=== PATIENT | female | born 1955 | race Caucasian/White ===

== ENCOUNTER 2018-09-22 10:03 | Emergency (ER) | payer OTHER, SELFPAY ==
[2018-09-22 10:03] VITALS: BP 115/66; PULSE 98; RESP 18; TEMP 36.6; O2SAT 99; BMI 28.3
--- NOTE | 2018-09-22 10:19 | CT_ITS ---
STUDY: CT ABDOMEN AND PELVIS WITH CONTRAST REASON FOR EXAM: Female, 63 years old. Abdominal pain with nausea RADIATION DOSAGE (If Supplied By Facility): CTDIvol = ( 13.12 ) mGy, DLP = ( 924.47 ) mGycm TECHNIQUE: Transaxial images were obtained from the dome of the diaphragm to the symphysis pubis without oral contrast. 100ml IV/Oral Isovue 300 was administered. Sagittal and coronal images were reconstructed. Individualized dose optimization techniques were used for this CT. COMPARISON: 04/21/2012 FINDINGS: Small left pleural effusion and compressive atelectasis in the left lung base. The visualized portions of the heart are within normal limits. Normal liver. Normal gallbladder and extrahepatic biliary system. Normal spleen. Normal pancreas. Normal bilateral adrenal glands. Normal right kidney. Interval development of perinephric stranding and edema around the left kidney extending into the left paracolic gutter. A large complex cystic lesion of the inferior left kidney has increased in size since the prior study, currently measuring 11 x 11 cm. Heterogeneous eccentric intermediate density likely represents blood product/sequela of hemorrhage. No active extravasation is identified, however. Normal visualized stomach. Normal small intestine. Normal colon. The appendix is visualized and appears normal. Normal abdominal aorta. Normal inferior vena cava. Normal retroperitoneum. Nondistended urinary bladder. Uterus is atrophic with smaller fibroid seen on the prior study. Mild degree of free fluid in the dependent portion of pelvis. Normal abdominal wall. Normal osseous structures. CT/Abdomen/Pelvis WITH Contrast IMPRESSION: 1. Interval hemorrhage of left renal cyst with intracystic hematoma now identified. Mild left and pelvic free fluid and perinephric edema. No active extravasation. Possibility of renal cystic neoplasm should be considered. 2. Left lower lobe atelectasis. Electronically Signed: Ankur Merritt MD at 12:26 EDT , Service support ,
--- NOTE | 2018-09-22 10:26 | ED.DCSUM_ITS ---
- ER Visit Summary Date of Service: 09/22/18 Chief Complaint: Abdominal pain History of Present Illness: The patient is a 63 F who presents with abdominal pain for the past 3 days. Patient states it is gradually gotten worse. Patient states the pain is localized to the left side of her abdomen. Patient describes her pain as stabbing. Patient states the pain is worse with palpation and with laying on her left side. Patient states she had one episode of nausea and vomiting yesterday. Patient denies any hematemesis or coffee-ground emesis. Patient states she also had an episode of diarrhea yesterday. Patient denies any melena or hematochezia. Patient denies any urinary complaints. Patient sta htuan she tried Dulcolax at home which did not improve her pain. Patient admits to a low-grade fever of 100. Physical Examination: Vital signs are stable. Patient is afebrile. Patient is in no acute distress. Oral mucosa is pink and moist. Neck is supple. Trachea is midline. There is no JVD noted. Heart was regular rate and rhythm. Lungs are clear and equal bilaterally. Abdomen is soft. Bowel sounds are normal. There is tenderness over the left upper and left lower quadrants. There is no rebound or guarding noted. Cranial nerves II through XII are intact. There are no focal motor or sensory deficits noted. Test Results: CBC showed a hemoglobin of 9.9. This was lower than the hemoglobin of 15.0 from 2012. Basic metabolic profile was normal. Urinalysis does not show any hematuria. CT scan of the abdomen and pelvis was obtained. There is increased size of the left renal cyst with new hemorrhage and hematoma. There is no extravasation of blood. There is some perinephric edema. Emergency Department Course and Treatment: Patient was given IV fluids and morphine here. Patient was also given a dose of Zofran here. There is no urology on-call here at [place]. Patient request to be transferred to [facility]. Case was discussed with the urologist there, Dr. Ruff. He referred the patient to the hospitalist group for observation admission. Patient will be transferred there. Patient and family understood and were agreeable with the plan. All questions were answered. Disposition: Transfer to [facility] Impression: Left renal cyst with acute hemorrhage This note was generated with [employer] software. It may contain incorrect words, spelling, and punctuation that were not noted in review of the chart prior to signing ED Disposition - Plan for ED Patient: Disposition: Acute Care Hospital - Other Diagnosis: Hemorrhage of cyst of [place] kidney Referrals: Abhijeet Carroll III, MD [Primary Care Provider] -
[2018-09-22] MEDS: Morphine 4 MG/ML Syringe IV (10:39)
[2018-09-22] MEDS: 0.9% Normal Saline 1,000 ML 1000 ML IV (10:39)
[2018-09-22 10:41] LABS: Absolute Lymphocyte Count 1.11 X10^3/ul (0.83-4.51); Absolute Neutrophil Count 5.8 X10^3/uL (2.0-7.7); Basophil# 0.02 X10^3/uL; Basophil% 0.3 % (0-1); Eosinophil# 0.02 X10^3/uL; Eosinophils% 0.3 % (0-5); Hemoglobin 9.9 g/dl (12.0-15.0); Lymphocyte # 1.11 X10^3/ul (4.0); Lymphocyte % 14.2 % (19-41); Mean Corp Hgb Conc 34.1 g/gl (32-36); Mean Corpuscular Hgb 30.6 pg (27.0-32.0); Mean Corpuscular Volume 89.5 fL (81-99); Mean Platelet Vol. 10.6 fl (6.2-12.0); Monocyte% 10.3 % (0-10); Neutrophil # 5.84 X10^3/uL (2.7-7.7); Neutrophil % 74.8 % (47-70); Platelet Count 198 K/mm3 (150-450); RBC Distribution Width CV 13.7 % (11.6-14.6); RBC Distribution Width SD 44.8 fl (35.1-43.9); Red Blood Count 3.24 M/mm3 (4.2-5.4); White Blood Count 7.8 K/mm3 (4.4-11.0)
[2018-09-22 10:42] LABS: POSITIVE COUNT NO; POSITIVE DIFFERENTIAL NO; POSITIVE MORPHOLOGY NO
[2018-09-22 11:01] LABS: AST(SGOT) 17 U/L (15-37); Alanine Aminotransfer ALT/SGPT 20 U/L (13-56); Albumin, Serum 3.5 g/dL (3.2-5.0); Alkaline Phosphatase 63 U/L (45-117); Anion Gap 7 (5-15); BUN 13 mg/dL (7-18); BUN/Creat Ratio 17.8 RATIO (10-20); Calcium,Total 8.4 mg/dL (8.5-10.1); Chloride 105 mmol/L (98-107); Creatinine, Serum 0.73 mg/dL (0.55-1.02); EST Glomerular Filtration Rate 86 mL/min (>60); Est Glom Filt Rate - Afr Amer 104 mL/min (>60); Estimated Creatinine Clearance 69.88 ml/min; Globulin 3.4 g/dL (2.2-4.2); Glucose 117 mg/dL (74-106); Lipase 104 U/L (73-393); Potassium 3.3 mmol/L (3.5-5.1); Protein, Total 6.9 g/dL (6.4-8.2); Sodium Level 139 mmol/L (136-145)
[2018-09-22 12:55] VITALS: BP 106/85; PULSE 92; RESP 14; O2SAT 97
[2018-09-22 12:56] LABS: Bacteria 0 SEEN /hpf (None Seen); Mucous, Urine 0 SEEN /hpf (<or=2+); Red Blood Cells-Urine 0 SEEN /hpf (0-5); White Blood Cells 0 SEEN /hpf (0-5)
[2018-09-22 13:02] LABS: Color, Urine Yellow (Yellow); Glucose, Dipstick Normal (Normal); Ketone-Dipstick Negative (Negative); Leukocyte Esterase-Dipstick Negative /ul (Negative); Nitrite-Dipstick Negative (Negative); Occult Blood-Urine Negative /ul (Negative); Protein-Dipstick Negative (Negative); Urine Bilirubin Dipstick Negative (Negative); Urine Clarity Clear (Clear); Urine Urobilinogen Normal (Normal)
[2018-09-22 13:05] LABS: Squamous Epithelial Cells - UA 0-5 SEEN /hpf (5-10)
[2018-09-22 14:12] VITALS: RESP 18
[2018-09-22] MEDS: Ondansetron 4 MG/2 ML Vial IV (14:56)
== END 2018-09-22 15:58 | disposition short-term general hospital (02) ==
PROVIDERS: Emergency Provider Emergency Medicine; Family Provider Family Medicine; PCP Family Medicine
DX: N28.1 Cyst of kidney, acquired (principal); N28.89 Other specified disorders of kidney and ureter; R11.2 Nausea with vomiting, unspecified; R50.9 Fever, unspecified; Z79.899 Other long term (current) drug therapy
CPT/HCPCS: 74177; 80053; 81001; 83690; 85025; 96361; 96374; 96375; 99285; J7030; Q9967; A4216; J2405

== ENCOUNTER → 2019-02-18 16:44 | Outpatient (CLI) | payer OTHER, SELFPAY ==
--- NOTE | 2019-02-18 16:48 | CT_ITS ---
STUDY: CT ABDOMEN AND PELVIS WITH AND WITHOUT CONTRAST REASON FOR EXAM: Female, 63 years old. Left renal mass follow-up RADIATION DOSAGE (If Supplied By Facility): CTDIvol = ( 14.42 ) mGy, DLP = ( 2369.87 ) mGycm TECHNIQUE: Transaxial images were obtained from the dome of the diaphragm to the symphysis pubis without oral contrast. IV Isovue 300 100mL was administered. Sagittal and coronal images were reconstructed. Individualized dose optimization techniques were used for this CT. COMPARISON: September 22, 2018 FINDINGS: There is interstitial thickening at both lung bases.. The visualized portions of the heart are within normal limits. Normal liver. Gallbladder not visualized consistent with prior cholecystectomy Normal spleen. Normal pancreas. Normal bilateral adrenal glands. Normal right kidney. There is a large cyst arising from the lower pole left kidney measuring approximately 11.8 x 11.2 x 11.25 cm Normal visualized stomach. Normal small intestine. Minor diverticular disease of the sigmoid colon without evidence for acute diverticulitis The appendix is visualized and appears normal. Minor atherosclerotic changes of the aorta without evidence for aneurysm. Normal inferior vena cava. Normal retroperitoneum. Incompletely distended thick-walled bladder likely of no significance Small intrauterine fibroid noted within the uterine fundus Small fat-containing right inguinal hernia.. Lumbar spine demonstrates mild spondylosis. The contents of left renal cyst appears homogeneous on current exam with apparent resolution of the prior intracystic hemorrhage. CT/CT Abd/Pelvis W/WO Contrast IMPRESSION: Findings consistent with large left renal cyst with resolution of previously noted intracystic hemorrhage Electronically Signed: Temo Damico MD at 18:00 EDT , Service support ,
[2019-02-18 17:01] LABS: CREATININE FINGERSTICK < 0.6 mg/dL (0.55-1.02)
== END ==
PROVIDERS: Family Provider Family Medicine; PCP Family Medicine; Referring Provider Urology; Visit Provider Urology
DX: N28.89 Other specified disorders of kidney and ureter (principal)
CPT/HCPCS: 74178; Q9967

== ENCOUNTER 2019-05-01 15:39 | Observation (INO) | payer OTHER, SELFPAY ==
[2019-04-10 14:16] VITALS: BP 107/68; PULSE 59; RESP 17; TEMP 36.6; O2SAT 97; BMI 27.9
--- NOTE | 2019-04-10 14:42 | SDCEKG_ITS ---
Test Reason : Blood Pressure : / mmHG Vent. Rate : 055 BPM Atrial Rate : 055 BPM P-R Int : 160 ms QRS Dur : 094 ms QT Int : 404 ms P-R-T Axes : 043 027 031 degrees QTc Int : 386 ms Sinus bradycardia Otherwise normal ECG Confirmed by THOMAS JOYA, DARRON ([id number]), online content editor CELIO ROSE ([id number]) on 04/14/2019 11:21:10 AM Referred By: Hari Culver Confirmed By:DARRON GUZMAN MD
[2019-04-10 15:42] LABS: Hematocrit 43.7 % (37-47); Hemoglobin 14.6 g/dL (12.0-15.0); Mean Corp Hgb Conc 33.4 g/dL (32-36); Mean Corpuscular Volume 89.7 fL (81-99); Mean Platelet Vol. 11.2 fl (6.2-12.0); Platelet Count 235 K/mm3 (150-450); RBC Distribution Width CV 13.5 % (11.6-14.6); RBC Distribution Width SD 44.1 fl (35.1-43.9); Red Blood Count 4.87 M/mm3 (4.2-5.4); White Blood Count 6.4 K/mm3 (4.4-11.0)
[2019-04-10 15:54] LABS: International Normalized Ratio 1.1; Prothrombin Time (Protime)PT. 14.1 SECONDS (11.7-14.9)
[2019-04-10 15:55] LABS: Partial Thromboplast Time 28.6 Seconds (24.1-36.2)
[2019-04-10 16:40] LABS: Anion Gap 4 (5-15); BUN 13 mg/dL (7-18); BUN/Creat Ratio 19.6 RATIO (10-20); Calcium,Total 9.1 mg/dL (8.5-10.1); Chloride 105 mmol/L (98-107); Creatinine, Serum 0.66 mg/dL (0.55-1.02); EST Glomerular Filtration Rate 96 mL/min (>60); Est Glom Filt Rate - Afr Amer 116 mL/min (>60); Estimated Creatinine Clearance 80.55 ml/min; Glucose 86 mg/dL (74-106); Potassium 3.8 mmol/L (3.5-5.1); Sodium Level 140 mmol/L (136-145); Thyroid Stim Hormone (TSH) 2.24 uIU/mL (0.358-3.74)
[2019-04-30] VITALS (13 sets, daily range): BP systolic 102–124; BP diastolic 60–80; PULSE 64–100; RESP 12–18; TEMP 36.3–38.1; O2SAT 90–97; BMI 27.9
--- NOTE | 2019-04-30 | IMM_PTH ---
PATIENT: DERRICK NICHOLSON LOC: MS3 U#:[id number] AGE/SX: 63/F ROOM: [facility]304 RE05/01/[address]: Dr. Hari Culver MD : 1955 BED: 1 DIS: 05/02/2019 SPEC #: [id number] RECD: 05/05/19 12:31 STATUS: ALEXI REQ #: [id number] CATHY: 04/30/19 00:[address]: Hari Culver DEPT: IMMUNOHISTOCHEMISTRY RECD BY: Shilpa Tucker ENTERED: 05/05/19 12:33 SP TYPE: IMMUNO OTHR DR: Dr. Abhijeet Carroll III, MD Tissues: Kidney, NOS Procedures: RCC (add) CD10 (add) CK8 (add) JESSICA (add) MACRO (add) Vimentin (add) Pankeratin (add) CK7 (initial) PHYSICIAN & INSTITUTION [place] [id number] SPECIMEN INFORMATION: Tissue Source: Left renal cyst Clinical Info: Left renal cyst Specimen Number: [id number] #3 CPT code: 14778, 52640 x7 METHODOLOGY: Deparaffinized sections of prefer/formalin-fixed tissue or PAP/DQ stained slides are incubated with monoclonal/polyclonal antibodies/oligonucleotide probes. Localization is made via biotin free immunoperoxidase method. Appropriate controls are performed and reacted as expected. Results on target cell population are indicated in the following table: RESULTS: ANTIBODY / CLONE RESULT Block 3 CK7 (OV-TL12/30) negative CK8 (55tyiwH30) negative RCC (PN-15) negative Vimentin (V9) positive CD10 (56C6) negative AE1-3 (AE1/AE3/PCK26) negative Macro (HAM-56) negative JESSICA (E29) negative These tests were developed and their performance characteristics determined by [facility]. They may not have been cleared or approved by the U.S. Food and Drug Administration. The FDA has determined that such clearance or approval is not necessary. The above immunohistochemical/dualISH markers are ordered and reviewed by the Pathologist. INTERPRETATION: Left renal cyst, decortication: Benign cyst wall with extensive fibrosis, old hemorrhage, mild chronic inflammation and reactive changes. No evidence of malignancy. See comment. NAHUM:sara 05/14/19 Comment: The specimen was sent to [facility] for expert opinion and reviewed by Dr. Espinoza and above diagnosis is rendered. Additional immunohistochemical stains performed at [facility] supports the above diagnosis. Case has been reviewed in consultation with Dr. Guillaume who concurs with the above diagnosis. IDC:AM
[2019-04-30] MEDS: Lactated Ringers 1,000 ML 100 ML IV ×3 (06:50→12:41)
--- NOTE | 2019-04-30 08:00 | CYST_PTH ---
PATIENT: DERRICK NICHOLSON LOC: MS3 U#:[id number] AGE/SX: 63/F ROOM: [facility] RE05/01/[address]: Dr. Hari Culver MD : 1955 BED: 1 DIS: 05/02/2019 SPEC #: [id number] RECD: 04/30/19 12:48 STATUS: ALEXI BECKWITH #: [id number] CATHY: 04/30/19 08:[address]: Hari Culver DEPT: SURGICAL PATHOLOGY RECD BY: Adam Duckworth ENTERED: 04/30/19 13:55 SP TYPE: Cyst OTHR DR: Dr. Abhijeet Carroll III, MD Tissues: CYST Procedures: Surgery Specimen Level V HEADER OPERATION: Laparoscopic robotic assisted left renal cyst decortication PRE-OP DIAGNOSIS: Cyst of left kidney TISSUE SUBMITTED: Left renal cyst MICROSCOPIC DIAGNOSIS Left renal cyst, decortication: Benign cyst wall with extensive fibrosis, old hemorrhage, mild chronic inflammation and reactive changes. No evidence of malignancy. See comment. SJ:rg 05/14/19 COMMENT The specimen was sent to [facility] for expert opinion and reviewed by Dr. Espinoza and above diagnosis is rendered. Immunohistochemistry performed here ([id number]) and additional stains performed at [facility] supports the above diagnosis. Focally dilated tubules with clear cell change are noted. However, no expansile growth is present and the tubal epithelium shows no atypia. The epithelial cells are positive for PAX-8 and negative for CAIX, supporting the diagnosis. Complete report is viewable in patient's EMR. Case has been reviewed in consultation with Dr. Guillaume who concurs with the above diagnosis. IDC:AM MICROSCOPIC DESCRIPTION Slides are reviewed. GROSS DESCRIPTION Received in fixative is one container labeled with the patient's name and designated left renal cyst. The specimen consists of a previously opened cyst consisting of a cyst wall and attached adipose tissue. No normal renal tissue is identified. Multiple detached fragments of blood clots and hemorrhagic tissue are also noted. The entire specimen weighs 194 gm. The largest piece measures 13 x 10 x 5 cm and detached fragments of hemorrhagic tissue with multiple clots measures in aggregate 6 x 7 x 2 cm. The outer surface of the cyst wall is inked black. The inner cyst wall shows ragged, hemorrhagic surface. Communication Manager sections are submitted in ten cassettes as follows: 1??perirenal and adipose tissue including inked resection margin, 2-9 - cyst wall, 10 - detached pieces of hemorrhagic tissue. / NAHUM:sara 05/01/19 More sections are submitted in cassettes 11-14. / NAHUM:sara 05/02/19 TC:5 CPT: 53915
[2019-04-30] MEDS: Cefazolin 2 GM in 0.9% Normal Saline 100 ML IV (08:04)
--- NOTE | 2019-04-30 08:07 | PCM.DC.URO ---
Discharge Diet: Light diet - advance as tolerated Discharge Activity: May not drive while taking narcotic pain medications., May Shower Call your doctor if your incision/area has: Continuous Slow Oozing, Sudden Increased Bleeding, Increased Pain/ Swelling, Increased Redness, Foul Smelling Discharge, Swelling at the incision site Call your doctor if you observe: Fever of 101 or Higher, Uncontrolled pain Suture Line Care: Avoid Pulling/Pushing, Avoid Pinching/Bending Allergies/Adverse Reactions: Allergies Penicillins Allergy (Verified 04/30/19 06:23) rash Medications to take at Discharge estradiol 1 g VAGINAL QDAY 04/10/17 sertraline 50 mg tablet 50 mg PO QDAY 04/10/17 valacyclovir 500 mg tablet 500 mg PO QDAY 04/10/17 Calcium Carbonate/Vitamin D3 [Calcium 600 + Vit D Tablet] 1 ea PO DAILY 04/10/19 Mv-Mn/Folic AC/Calcium/Vit K1 [Women's 50 Plus Multivit Tab] 1 ea PO DAILY 04/10/19 Docusate Sodium [Colace] 100 mg PO BID #20 cap 04/30/19 Hydrocodone/Acetaminophen [[place] 5-325 Tablet] 1 each PO Q4H PRN PRN 5 Days #14 tablet 04/30/19 The following prescriptions were given: Docusate Sodium [Colace] 100 mg PO BID #20 cap Transmission Status: Pending to [facility] Hydrocodone/Acetaminophen [[place] 5-325 Tablet] 1 each PO Q4H PRN PRN 5 Days #14 tablet PRN Reason: Pain Score 1-10/10 Transmission Status: Sent to [facility] Primary Care Physician: Abhijeet Carroll III, MD [Primary Care Provider] - Test Results: Test results from this visit will be discussed in further detail at your follow-up appointment, if applicable. Please Follow Up With: Hari Culver MD When: in 2 weeks, please call to make an appointment. Proposed Discharge Date: 05/01/19
--- NOTE | 2019-04-30 11:09 | OP.PCM_ITS ---
Report of Operation Date of Procedure: 04/30/19 Pre-Operative Diagnosis: Large left renal hemorrhagic cyst Post-Operative Diagnosis: Same Surgery/Procedure Performed:: Laparoscopic robotic assisted left cyst decortication Description of Surgical Findings:: 63-year-old female who has a very large cyst in the right kidney cyst is about over 25 cm in size this summer she had bleeding from the kidney and bleeding into the cyst that caused severe pain she was admitted to an outside hospital. I then saw her follow-up consultation she did have a biopsy that came back negative for cancer but she is symptomatic with pain on the left side especially with movement since the cyst is so large and occupying a significant amount of space within her abdomen. We talked about options of management we can continue with observation as possible as this may get larger and cause more problems we could also proceed with a laparoscopic robotic assisted cortication we talked about the risk of the procedure injury to bowel intestines, risk of bleeding ri sk of infection. 63-year-old female was taken back to the operating room at the smooth induction of general anesthesia she was placed supine on the table general endotracheal intubation Pack catheter placement we then placed her lateral with the left side up the table flexed axillary roll in place shoulder faust to hold her shoulder up made sure that she was properly padded in position on the table in the left flank. I then marked out my approach to the left kidney the abdomen was prepped and draped in usual sterile fashion, I placed trocar trocar for a camera left trocar right trocar and then a suction trocar for my dental assistant medical assistant. Used a Veress needle to obtain pneumoperitoneum placed the camera trocar my right and left robotic trochars immediately could see that the cyst was right on top of this occupying a significant amount of space in the abdomen we then docked the robot and for started by incising the white line of Toldt and carried that all the way down from the splenic flexure all the way down to the pelvis this allowed the colon the follow-up the the lateral wall way that we then had to dissect the colon off the cyst this was quite difficult because the cyst was quite enlarged so in order to facilitate this this dissection I decided to open up the cyst opened up a small window in the cyst and a drained amount of significant old blood from the cyst at this decompresses this allowed more of the colon then to be retracted over the top of the cyst as I continued to retract reflect the colon off the cyst very carefully making sure that I did not put any traction injury to the colon the colon was completely reflected off I then opened up the cyst in the midline try to do the dissection from the inside of the cyst but this was too difficult so then I pulled up the cyst from the anterior wall and worked my way underneath the cyst until I got all the way underneath and then I reached all the way on the other side of the cyst that we elevated the cyst and then we dissected slowly with the off the posterior aspect dissected dissected off the mesenteric vessels using clips and cautery as I went through this and dissected the cyst off the retroperitoneum in a very meticulous fashion all the way down until the cyst was completely free I then dissected the cyst off the attachment to the kidney I was able to find the attachment to the kidney sweater operator precisely and cleaned the cyst off the kidney lower pole we then placed FloSeal and Surgicel in the kidney itself we then we also placed another 1012 Marcio Dunn trocar in the lower part of the abdomen during the procedure the dental assistant medical assistant used the grasper to hold the cyst up in the ear in order to dissect underneath the cyst during the case. Through this 1012 trocar we then advanced a large Endo Catch bag identified the cyst robot was undocked we then placed the cyst into the large Endo Catch bag we asked we opened up the size of the extraction site pulled out the cyst into the Endo Catch bag and this was sent off as a specimen we then closed the extraction site we then went back in the abdomen laparoscopically inspected the abdomen irrigated copiously suctioned out any other old hemosiderin and blood clots from the abdomen there was a little bit of oozing from the retroperitoneum I then placed FloSeal on this I could not really identify any significant arterial bleeding just a small venous oozing after placing FloSeal seem to control this. We then inspected the rest of the abdomen there was no signs of any injury to the intestine or bowels we extracted then the remaining trochars the trocar right left robotic trocar and a 5 mm trocar all these are small trochars they did not require closure of the fascia and then we closed the skin with subcuticular stitches patient anesthetic is currently being reversed we had minimal blood loss about 250 cc but it was a very difficult dissection given how large the cyst was and the patient is currently anesthetic being reversed. Type of Anesthesia:: General Estimated Blood Loss (mL): pack - Admit VTE Documentation VTE Present on Admission: No VTE Mechan Device Prophylaxis: SCD's
[2019-04-30] MEDS: Bupivacaine Mpf 0.5% 30 ML VIAL (11:21)
[2019-04-30] MEDS: Ketorolac 15 MG/ML Vial IV ×2 (12:31→17:57)
[2019-04-30] MEDS: 0.45% Normal Saline 1,000 ML 75 ML IV (14:09)
--- NOTE | 2019-04-30 15:43 | NURSING ---
Approx. 160 ml urine output.
[2019-04-30] MEDS: 0.9% Saline Lock 10 ML Syringe IV (17:57)
[2019-04-30] MEDS: Docusate Sodium 100 MG Capsule PO (22:13)
[2019-04-30] MEDS: Acetaminophen 500 MG Tablet PO (22:13)
[2019-05-01] VITALS (10 sets, daily range): BP systolic 81–102; BP diastolic 46–63; PULSE 76–91; RESP 16–18; TEMP 36.6–37.6; O2SAT 93–94
[2019-05-01] MEDS: Ketorolac 15 MG/ML Vial IV ×4 (00:56→18:02)
[2019-05-01] MEDS: 0.45% Normal Saline 1,000 ML 75 ML IV (02:19)
[2019-05-01 05:11] LABS: Hemoglobin 11.5 g/dL (12.0-15.0); Mean Corp Hgb Conc 33.8 g/dL (32-36); Mean Corpuscular Hgb 30.3 pg (27.0-32.0); Mean Corpuscular Volume 89.7 fL (81-99); Mean Platelet Vol. 10.3 fl (6.2-12.0); Platelet Count 176 K/mm3 (150-450); RBC Distribution Width CV 13.4 % (11.6-14.6); RBC Distribution Width SD 44.2 fl (35.1-43.9); Red Blood Count 3.79 M/mm3 (4.2-5.4); White Blood Count 7.9 K/mm3 (4.4-11.0)
[2019-05-01 05:41] LABS: Anion Gap 4 (5-15); BUN 6 mg/dL (7-18); BUN/Creat Ratio 10.4 RATIO (10-20); Calcium,Total 7.9 mg/dL (8.5-10.1); Chloride 112 mmol/L (98-107); Creatinine, Serum 0.58 mg/dL (0.55-1.02); EST Glomerular Filtration Rate 113 mL/min (>60); Est Glom Filt Rate - Afr Amer 136 mL/min (>60); Estimated Creatinine Clearance 91.66 ml/min; Glucose 105 mg/dL (74-106); Potassium 3.7 mmol/L (3.5-5.1); Sodium Level 144 mmol/L (136-145)
--- NOTE | 2019-05-01 06:15 | NURSING ---
Jessica d/c per order
[2019-05-01] MEDS: Enoxaparin 40 MG/0.4 ML Syringe SC (06:27)
--- NOTE | 2019-05-01 07:36 | PCM.PROGNOTE ---
Subjective: Postoperative day 1 status post laparoscopic robotic decortication of a very large hemorrhagic renal cyst she is doing well belly is nice and soft no gas yet. - Physical Exam Vitals/I&O's: Vital Signs Temp Pulse Resp BP Pulse Ox 98.8 F 87 18 98/56 L 94 05/01/19 04:40 05/01/19 04:40 05/01/19 04:40 05/01/19 04:40 05/01/19 07:31 Oxygen Flow Rate (L/min) 2 Oxygen Delivery Method Nasal Cannula Weight: 76.2 kg Body Mass Index (BMI) 27.9 Intake and Output for Last 24 Hours 04/29/19 04/30/19 05/01/19 23:59 23:59 23:59 Intake Total 2258.33 / 2558.33 1212.5 / 1212.5 Output Total 240 / 1690 2700 / 2700 Balance 2018.33 / 868.33 -1487.5 / -1487.5 General: Alert, Oriented x3, Cooperative HEENT: Atraumatic, PERRLA, EOMI, Normocephalic Neck: Supple, No JVD, Negative Carotid Bruits Lungs: Clear to auscultation, Normal air movement Cardiovascular: Regular rate, No murmurs Abdomen: Bowel Sounds Present, Soft, Non Tender Extremities: No edema, Capillary Refill Less than 3 Seconds Skin: No rashes, No breakdown Musculoskeletal: No Tenderness to Palpation of Joints or Extremities Neurological: Cranial nerves II-XII grossly intact Psych/Mental Status: Normal Affect, Appropriate Laboratory Results 05/01/19 05:00: WBC 7.9, RBC 3.79 L, Hgb 11.5 L, Hct 34.0 L, MCV 89.7, MCH 30.3, MCHC 33.8, RDW Std Deviation 44.2 H, RDW Coeff of Rosa 13.4, Plt Count 176, MPV 10.3 05/01/19 05:00: Sodium 144, Potassium 3.7, Chloride 112 H, Carbon Dioxide 28.0, Anion Gap 4 L, BUN 6 L, Creatinine 0.58, Estim Creat Clear Calc 91.66, Est GFR (MDRD) Af Amer 136, Est GFR (MDRD) Non-Af 113, BUN/Creatinine Ratio 10.4, Glucose 105, Calcium 7.9 L Current Medications Acetaminophen (Tylenol) 500 mg PO Q4H PRN PRN PRN Reason: Pain Score 1-10/10 /Headache Last Admin: 04/30/19 22:13 Dose: 500 mg Documented by: Docusate Sodium (Colace) 100 mg PO BID [facility] Last Admin: 04/30/19 22:13 Dose: 100 mg Documented by: Enoxaparin Sodium (Lovenox) 40 mg SC DAILY@0600 [facility] Last Admin: 05/01/19 06:27 Dose: 40 mg Documented by: Sodium Chloride () 1,000 mls @ 75 mls/hr IV .[id number] [facility] Last Admin: 05/01/19 02:19 Dose: 75 mls/hr Documented by: Sodium Chloride () 250 mls @ 15 mls/hr IV .[id number] PRN PRN Reason: Saline Flush Sodium Chloride () 250 mls @ 15 mls/hr IV .[id number] PRN PRN Reason: Additional IVPB Infusion Ketorolac Tromethamine (Toradol) 15 mg IV Q6 [facility] Stop: 05/05/19 12:01 Last Admin: 05/01/19 06:26 Dose: 15 mg Documented by: Magnesium Hydroxide (Milk Of Magnesia) 15 ml PO DAILY [facility] Last Admin: 04/30/19 14:07 Dose: Not Given Documented by: Ondansetron HCl (Zofran) 4 mg IV Q6H PRN PRN PRN Reason: Nausea Pantoprazole Sodium (Protonix) 20 mg PO DAILY [facility] Last Admin: 04/30/19 14:07 Dose: Not Given Documented by: Sodium Chloride () 10 - 40 ml IV UD PRN PRN Reason: SALINE FLUSH Last Admin: 04/30/19 17:57 Dose: 10 ml Documented by: Medical Necessity - Tobacco Use Smoking Status: Never smoker Tobacco Use: Non-smoker Assessment/Plan Hep-Lock IV fluids ambulate advance to regular diet probable discharge this evening.
[2019-05-01] MEDS: Pantoprazole Sodium 20 MG Tablet PO (08:40)
[2019-05-01] MEDS: Docusate Sodium 100 MG Capsule PO (08:40)
[2019-05-01] MEDS: Magnesium Hydroxide 30 ML UDC 15 ML PO (08:40)
[2019-05-01] MEDS: Lactated Ringers 1,000 ML 999 ML IV (10:42)
[2019-05-01] MEDS: Lactated Ringers 1,000 ML 100 ML IV ×2 (13:00→21:36)
[2019-05-01] MEDS: Acetaminophen 500 MG Tablet PO (15:45)
[2019-05-01] MEDS: Acyclovir 200 MG Capsule 400 MG PO (21:36)
[2019-05-02] MEDS: Ketorolac 15 MG/ML Vial IV ×3 (00:18→11:53)
[2019-05-02] MEDS: Acetaminophen 500 MG Tablet PO (05:17)
[2019-05-02] MEDS: Enoxaparin 40 MG/0.4 ML Syringe SC (05:18)
[2019-05-02 05:19] VITALS: BP 112/71; PULSE 89; RESP 18; TEMP 36.8; O2SAT 93
[2019-05-02 07:21] VITALS: O2SAT 93
[2019-05-02] MEDS: Lactated Ringers 1,000 ML 100 ML IV (07:22)
[2019-05-02 08:15] VITALS: BP 124/67; PULSE 85; RESP 14; TEMP 36.7; O2SAT 95
[2019-05-02] MEDS: 0.9% Saline Lock 10 ML Syringe IV (11:49)
[2019-05-02] MEDS: Calcium Carb/Vitamin D 1 TABLET Tablet PO (11:49)
[2019-05-02] MEDS: Pantoprazole Sodium 20 MG Tablet PO (11:50)
[2019-05-02] MEDS: Acyclovir 200 MG Capsule 400 MG PO (11:50)
[2019-05-02] MEDS: Sertraline 50 MG Tablet PO (11:50)
[2019-05-02] MEDS: Multivitamins,Ther W-Minerals Tablet 1 TABLET PO (11:50)
--- NOTE | 2019-05-02 12:33 | PN_ITS ---
Subjective: This morning patient is doing well blood pressure is much better she is tolerating regular diet looks good has been ambulating. - Physical Exam Vitals/I&O's: Vital Signs Temp Pulse Resp BP Pulse Ox 98.0 F 85 14 124/67 H 95 05/02/19 08:15 05/02/19 08:15 05/02/19 08:15 05/02/19 08:15 05/02/19 08:15 Oxygen Flow Rate (L/min) 2 Oxygen Delivery Method Room Air Weight: 76.2 kg Body Mass Index (BMI) 27.9 Intake and Output for Last 24 Hours 04/30/19 05/01/19 05/02/19 23:59 23:59 23:59 Intake Total 2258.33 / 2558.33 4146.25 / 4146.25 1326.67 / 1326.67 Output Total 240 / 1690 3800 / 3800 450 / 450 Balance 2018.33 / 868.33 346.25 / 346.25 876.67 / 876.67 General: Alert, Oriented x3, Cooperative HEENT: Atraumatic, PERRLA, EOMI, Normocephalic Neck: Supple, No JVD, Negative Carotid Bruits Lungs: Clear to auscultation, Normal air movement Cardiovascular: Regular rate, No murmurs Abdomen: Bowel Sounds Present, Soft, Non Tender Extremities: No edema, Capillary Refill Less than 3 Seconds Skin: No rashes, No breakdown Musculoskeletal: No Tenderness to Palpation of Joints or Extremities Neurological: Cranial nerves II-XII grossly intact Psych/Mental Status: Normal Affect, Appropriate Current Medications Acetaminophen (Tylenol) 500 mg PO Q4H PRN PRN PRN Reason: Pain Score 1-01/30 /Headache Last Admin: 05/02/19 05:17 Dose: 500 mg Documented by: Acyclovir (Zovirax) 400 mg PO Q12 [facility] Last Admin: 05/02/19 11:50 Dose: 400 mg Documented by: Calcium/Vitamin D (Os-Ori 500mg + D) 1 tablet PO DAILY@1200 [facility] Last Admin: 05/02/19 11:49 Dose: 1 tablet Documented by: Docusate Sodium (Colace) 100 mg PO BID [facility] Last Admin: 05/02/19 11:52 Dose: Not Given Documented by: Enoxaparin Sodium (Lovenox) 40 mg SC DAILY@0600 [facility] Last Admin: 05/02/19 05:18 Dose: 40 mg Documented by: Sodium Chloride () 250 mls @ 15 mls/hr IV .[id number] PRN PRN Reason: Saline Flush Sodium Chloride () 250 mls @ 15 mls/hr IV .[id number] PRN PRN Reason: Additional IVPB Infusion Ketorolac Tromethamine (Toradol) 15 mg IV Q6 [facility] Stop: 05/05/19 12:01 Last Admin: 05/02/19 11:53 Dose: 15 mg Documented by: Magnesium Hydroxide (Milk Of Magnesia) 15 ml PO DAILY [facility] Last Admin: 05/02/19 11:53 Dose: Not Given Documented by: Multivitamins/Minerals (Multivitamin With Minerals) 1 tablet PO DAILY@0800 [facility] Last Admin: 05/02/19 11:50 Dose: 1 tablet Documented by: Ondansetron HCl (Zofran) 4 mg IV Q6H PRN PRN PRN Reason: Nausea Pantoprazole Sodium (Protonix) 20 mg PO DAILY [facility] Last Admin: 05/02/19 11:50 Dose: 20 mg Documented by: Sertraline HCl (Zoloft) 50 mg PO DAILY [facility] Last Admin: 05/02/19 11:50 Dose: 50 mg Documented by: Sodium Chloride () 10 - 40 ml IV UD PRN PRN Reason: SALINE FLUSH Last Admin: 05/02/19 11:49 Dose: 10 ml Documented by: Medical Necessity - Tobacco Use Smoking Status: Never smoker Tobacco Use: Non-smoker Assessment/Plan 63-year-old female status post decortication of a very large left renal cyst discharged home today she is doing she is in stable condition.
[2019-05-02 14:20] VITALS: BP 125/69; PULSE 77; RESP 14; TEMP 36.7; O2SAT 93
== END 2019-05-02 14:30 | disposition home or self-care (01) ==
LOC: SDC 05-02 08:25 → MS3 05-02 08:25
PROVIDERS: Anesthesiology; Admitting Provider Urology; Family Provider Family Medicine; PCP Family Medicine; Referring Provider Urology; Visit Provider Urology
PROC: (CPT 50543; principal; 2019-04-30 07:40)
DX: N28.1 Cyst of kidney, acquired (principal); E07.9 Disorder of thyroid, unspecified; F32.9 Major depressive disorder, single episode, unspecified; E78.00 Pure hypercholesterolemia, unspecified; Z79.899 Other long term (current) drug therapy; F41.9 Anxiety disorder, unspecified; E78.5 Hyperlipidemia, unspecified; K51.90 Ulcerative colitis, unspecified, without complications
CPT/HCPCS: 00862; 50541; S2900; 36415; 80048; 84443; 85027; 85610; 85730; 88304; 88307; 88341; 88342; 93005; 96361; 96372; 96374; 96376; 99218; 99251; J7120; A4216; G0378; G0379; G0463; J2405

== ENCOUNTER 2021-07-09 09:25 | Emergency (ER) | payer OTHER, SELFPAY ==
[2021-07-09 09:27] VITALS: BP 119/78; PULSE 71; RESP 17; TEMP 35.6; O2SAT 97; BMI 27.7
--- NOTE | 2021-07-09 09:54 | RAD_ITS ---
STUDY: X-RAY CHEST REASON FOR EXAM: Female, 65 years old. Palpitations. TECHNIQUE: Single AP portable view of the chest. COMPARISON: None. FINDINGS: Hypoventilatory changes in the right lung base. No focal infiltrate is seen. There is no demonstrated pleural abnormality. Normal size heart. Normal mediastinum and gwen. Normal visualized pulmonary arteries. There is mild atherosclerotic tortuosity of the aortic arch and descending thoracic aorta. No demonstrated acute osseous changes. There is no demonstrated abnormality of the visualized soft tissue structures of the upper abdomen. RAD/Chest 1 View (Portable) IMPRESSION: No active pulmonary disease. Electronically Signed: Frederick Etienne MD at 10:33 EDT ,
--- NOTE | 2021-07-09 09:54 | EKG12_ITS ---
Test Reason : PALPS Blood Pressure : / mmHG Vent. Rate : 067 BPM Atrial Rate : 067 BPM P-R Int : 156 ms QRS Dur : 090 ms QT Int : 378 ms P-R-T Axes : 051 018 038 degrees QTc Int : 399 ms Normal sinus rhythm Normal ECG Confirmed by CARMEN JOYA, JODEE ([id number]), food expeditor CELIO ROSE ([id number]) on 07/11/2021 11:18:06 A M Referred By: MONI NESS Confirmed By:FAM MORALES MD
--- NOTE | 2021-07-09 09:54 | ED.VIS.CHEST ---
HPI History of Present Illness Chief Complaint: Palpitations Narrative Narrative: 65-year-old female presenting with palpitations. She states has had them since last Sunday. These palpitations come and go. They last for several minutes at a time. He states he is not short of breath, lightheaded, diaphoretic. She states she has a history of palpitations and has been under more stress recently. She was previously put on metoprolol for these palpitations and used to see Dr. Carroll before he retired. She currently sees Dr. Hart. She has had no changes in her metoprolol dosing. She states she went to the urgent care today and was sent to the emergency room. Patient has not had fever, chills, cough. She is eating and drinking normally. Other than palpitations she denies a cardiac history. No history of DVT/PE. [facility] Medical History Diverticulosis Family history of GI malignancy Hemorrhage of gastrointestinal tract history distal mucous cyst right thumb history uterine ablation Hyperlipidemia Impingement syndrome of right shoulder Multinodular goiter Renal cyst Tear meniscus knee Ulcerative colitis Ulcerative proctitis Home Medications estradiol 1 g VAGINAL QDAY 04/10/17 [History Last Taken Unknown] sertraline 50 mg tablet 50 mg PO QDAY 04/10/17 [History Last Taken Unknown] valacyclovir 500 mg tablet 500 mg PO QDAY 04/10/17 [History Last Taken Unknown] calcium carbonate-vitamin D3 1 ea PO DAILY 04/10/19 [History Last Taken Unknown] nw-gdy-rnxlp-calcium carb-K1 1 ea PO DAILY 04/10/19 [History Last Taken Unknown] docusate sodium 100 mg PO BID #20 cap 04/30/19 [Rx Last Taken Unknown] metoprolol succinate 25 mg PO DAILY 07/09/21 [History Last Taken Unknown] Allergy/AdvReac Type Severity Reaction Status Date / Time minocycline Allergy Rash Verified 07/09/21 09:26 Penicillins Allergy rash Verified 04/30/19 06:23 Family History Mother Hypertension Mother COPD (chronic obstructive pulmonary disease) Father Lung cancer Father Alzheimer's dementia Brother Hypertension Surgical History History of colonoscopy (~10/02/03) History of laparoscopic cholecystectomy History of lumpectomy of right breast Social History Smoking Status: Never smoker alcohol intake: current details: occasional/social substance use type: does not use ROS ROS ED Constitutional Constitutional ED: Denies chills, fever(s) or sweats Eyes Eyes: Denies blurry vision or change in vision ENT ENT ED: Denies rhinorrhea or sore throat Cardiovascular Cardiovascular: Reports as per HPI Respiratory/Chest Respiratory/Chest: Denies cough or dyspnea Gastrointestinal Gastrointestinal: Denies abdominal pain, nausea or vomiting Genitourinary Genitourinary ED: Denies dysuria or hematuria Musculoskeletal Musculoskeletal: Denies arthralgias, back pain, myalgias or neck pain Integumentary Denies rash Neurologic Neurologic: Denies headache(s) or weakness Psychiatric Psychiatric: Reports anxiety; Denies depression EXAM Physical Exam Const Vital Signs: 07/09/21 09:27 07/09/21 10:04 07/09/21 10:05 Temperature 96.0 F L Temperature Source Temporal Pulse Rate 71 Respiratory Rate 17 Respiratory Effort Normal Non-Labored Blood Pressure 119/78 Blood Pressure Mean 91 Pulse Ox 97 Oxygen Delivery Method Room Air Room Air Positive well nourished General Appearance ED: NAD; Negative for pallor HEENT Reports moist mucous membranes normocephalic and atraumatic Eyes PERRL and EOMs intact bilaterally General Eye ED: Negative for pale conjunctiva Resp normal respiratory effort Effort and Inspection: respiratory distress Cardio regular rate and regular rhythm Extremity normal to inspection General Extremety ED: Negative for edema or tenderness General Extremity: Negative for edema Neuro oriented x3 and CN's II-XII intact bilaterally Sensorium / Orientation: awake and alert Motor Exam: strength 5/5 throughout Psych mental status grossly normal Skin General Skin Exam: Negative for jaundice or pallor Heart Score History: Slightly/Non-Suspicious ECG: Normal Age: >45 - <65 years Risk Factors: No Risk Factors Troponin: </= Normal Limit Score: 1 MDM MDM MDM Narrative Medical decision making narrative: Patient presenting with palpitations for the last several days. EKG obtained on arrival shows a normal sinus rhythm with a ventricular rate of 67 bpm without signs of dysrhythmia or ischemic change on my interpretation. Patient's vital signs are within normal limits. She is nontoxic-appearing. Patient CBC and BMP are unremarkable. High-sensitivity troponin is 4 initially. D-dimer is negative. Chest x-ray my interpretation shows no acute cardiopulmonary process and the radiologist does agree. Patient's delta troponin is 6 and there is no significant interval change. Patient counseled on all findings. I will give her follow-up with cardiology and recommended that she also follow-up with her primary care provider. Patient discharged home in stable condition. Impression: 1. Palpitations Lab Data Attestation: I reviewed the patient's lab results. Labs: Laboratory Results - last 24 hr 07/09/21 07/09/21 07/09/21 09:45 09:45 09:45 WBC 5.0 RBC 4.85 Hgb 15.3 H Hct 42.3 MCV 87.2 MCH 31.5 MCHC 36.2 H RDW Std Deviation 40.7 RDW Coeff of Rosa 12.9 Plt Count 202 MPV 10.8 Immature Gran % (Auto) 0.200 Neut % (Auto) 58.1 Lymph % (Auto) 30.8 [place] % (Auto) 9.1 Eos % (Auto) 1.4 Baso % (Auto) 0.4 Absolute Neuts (auto) 2.9 Absolute Lymphs (auto) 1.55 Nucleated RBC % 0 D-Dimer Quant (PE/DVT) < 0.27 L Sodium 140 Potassium 3.8 Chloride 110 H Carbon Dioxide 29.0 Anion Gap 1 L BUN 13 Creatinine 0.72 Estim Creat Clear Calc 71.96 Est GFR (MDRD) Af Amer 104 Est GFR (MDRD) Non-Af 86 BUN/Creatinine Ratio 18.0 Glucose 93 Calcium 9.0 Troponin I High Sens 4 07/09/21 11:45 WBC RBC Hgb Hct MCV MCH MCHC RDW Std Deviation RDW Coeff of Rosa Plt Count MPV Immature Gran % (Auto) Neut % (Auto) Lymph % (Auto) [place] % (Auto) Eos % (Auto) Baso % (Auto) Absolute Neuts (auto) Absolute Lymphs (auto) Nucleated RBC % D-Dimer Quant (PE/DVT) Sodium Potassium Chloride Carbon Dioxide Anion Gap BUN Creatinine Estim Creat Clear Calc Est GFR (MDRD) Af Amer Est GFR (MDRD) Non-Af BUN/Creatinine Ratio Glucose Calcium Troponin I High Sens 6 Radiography Diagnostic Testing: Clinical Impression(s) from Imaging Studies Chest X-Ray 07/09/21 09:54 IMPRESSION: No active pulmonary disease. Electronically Signed: Frederick Etienne MD at 10:33 EDT , Discharge Plan Triage Chief Complaint: Palpitations ED Provider: Alexandre Jewell Dx/Rx/DC Orders Instructions: ED Palpitations Prescriptions: No Action valacyclovir [Valtrex] 500 mg tablet 500 mg PO QDAY RF: 0 sertraline [Zoloft] 50 mg tablet 50 mg PO QDAY RF: 0 estradiol [Estrace] 0.01 % (0.1 mg/gram) cream 1 g VAGINAL QDAY RF: 0 calcium carbonate-vitamin D3 1 EACH tablet 1 ea PO DAILY RF: 0 th-arj-akhss-calcium carb-K1 1 EACH tablet 1 ea PO DAILY RF: 0 docusate sodium 100 MG capsule 100 mg PO BID Qty: 20 RF: 0 metoprolol succinate 25 mg tablet extended release 24 hr 25 mg PO DAILY RF: 0 Primary Care Provider: Roseann Zhang Referrals: Roseann Zhang MD [Primary Care Provider] - Cornelius Jackson MD [STAFF PHYSICIAN] - As Needed Disposition Disposition: Home, Self Care
[2021-07-09 10:07] LABS: Absolute Lymphocyte Count 1.55 X10^3/uL (0.83-4.51); Absolute Neutrophil Count 2.9 X10^3/uL (2.0-7.7); Basophil# 0.02 X10^3/uL; Basophil% 0.4 % (0-1); Eosinophil# 0.07 X10^3/uL; Eosinophils% 1.4 % (0-5); Hematocrit 42.3 % (37-47); Hemoglobin 15.3 g/dL (12.0-15.0); Lymphocyte # 1.55 X10^3/ul (0.83-4.51); Lymphocyte % 30.8 % (19-41); Mean Corp Hgb Conc 36.2 g/dL (32-36); Mean Corpuscular Hgb 31.5 pg (27.0-32.0); Mean Corpuscular Volume 87.2 fL (81-99); Mean Platelet Vol. 10.8 fl (6.2-12.0); Monocyte# 0.46 X10^3/uL; Monocyte% 9.1 % (0-10); NRBC Flagged by Analyzer 0 % (0-5); Neutrophil # 2.93 X10^3/uL (2.7-7.7); Neutrophil % 58.1 % (47-70); Platelet Count 202 K/mm3 (150-450); RBC Distribution Width CV 12.9 % (11.6-14.6); RBC Distribution Width SD 40.7 fl (35.1-43.9); Red Blood Count 4.85 M/mm3 (4.2-5.4)
[2021-07-09 10:20] LABS: Anion Gap 1 (5-15); BUN 13 mg/dL (7-18); Chloride 110 mmol/L (98-107); Creatinine, Serum 0.72 mg/dL (0.55-1.02); EST Glomerular Filtration Rate 86 mL/min (>60); Est Glom Filt Rate - Afr Amer 104 mL/min (>60); Estimated Creatinine Clearance 71.96 ml/min; Glucose 93 mg/dL (74-106); Potassium 3.8 mmol/L (3.5-5.1); Sodium Level 140 mmol/L (136-145); Troponin-I HS 4 pg/mL (3.0-54.0)
[2021-07-09 10:35] LABS: D-Dimer Quantitative (DVT/PE) < 0.27 FEU/ug/m (0.27-0.49)
[2021-07-09 12:10] LABS: Troponin-I HS 6 pg/mL (3.0-54.0)
[2021-07-09 12:31] VITALS: BP 106/32; BP 106/62; PULSE 64; RESP 15; O2SAT 96
== END 2021-07-09 12:32 | disposition home or self-care (01) ==
PROVIDERS: Emergency Provider Student in an Organized Health Care Education/Training Program; PCP Internal Medicine; Visit Provider Student in an Organized Health Care Education/Training Program
DX: R00.2 Palpitations (principal); Z79.899 Other long term (current) drug therapy
CPT/HCPCS: 71045; 80048; 84484; 85025; 85379; 93005; 99284; A4216

== ENCOUNTER 2023-05-25 09:37 | Emergency (ER) | payer MEDICARE, OTHER, SELFPAY ==
[2023-05-25 09:37] VITALS: BP 117/72; PULSE 77; RESP 18; TEMP 35.3; O2SAT 95; BMI 27.9
--- NOTE | 2023-05-25 10:11 | ED.VIS.LOWEX ---
HPI History of Present Illness Chief Complaint: Lower Extremity Injury Informant: patient Onset/Context/Timing Onset: Yesterday Narrative Narrative: Patient presents today for right knee injury. She states was going up some steps yesterday when she felt a pop in the medial portion of her right knee. She denies pain with weightbearing. She does feel it gives out on her. In her history I do note a prior meniscus injury. She does not remember if that was her right knee or left. [facility] Medical History Diverticulosis Family history of GI malignancy Hemorrhage of gastrointestinal tract history distal mucous cyst right thumb history uterine ablation Hyperlipidemia Impingement syndrome of right shoulder Multinodular goiter Renal cyst Tear meniscus knee Ulcerative colitis Ulcerative proctitis Home Medications estradiol 0.01% (0.1 mg/gram) vaginal cream (Estrace) 1 g vaginal QDAY 04/10/17 [History Last Taken Unknown] sertraline 50 mg tablet (Zoloft) 50 mg PO QDAY 04/10/17 [History Last Taken Unknown] valacyclovir 500 mg tablet (Valtrex) 500 mg PO QDAY 04/10/17 [History Last Taken Unknown] calcium carbonate-vitamin D3 600 mg-125 unit tablet 1 ea PO DAILY supplement 04/10/19 [History Last Taken Unknown] hveisgpq-wkc-vchmu ac 400 mcg-calcium carb 500 mg-vit K1 20 mcg tablet 1 ea PO DAILY supplement 04/10/19 [History Last Taken Unknown] docusate sodium 100 mg capsule 100 mg PO BID #20 caps 04/30/19 [Rx Last Taken Unknown] metoprolol succinate 25 mg tablet,extended release 24 hr 25 mg PO DAILY 07/09/21 [History Last Taken Unknown] hydrocodone-acetaminophen 5-325mg 5mg-325mg 1 tab PO Q6H PRN PRN Pain 3 days #10 TABLETS 05/25/23 [Rx Last Taken Unknown] pravastatin 40 mg tablet 40 mg PO DAILY 05/25/23 [History Last Taken Unknown] Allergy/AdvReac Type Severity Reaction Status Date / Time minocycline Allergy Rash Verified 07/09/21 09:26 Penicillins Allergy rash Verified 04/30/19 06:23 Family History Mother Hypertension Mother COPD (chronic obstructive pulmonary disease) Father Lung cancer Father Alzheimer's dementia Brother Hypertension Surgical History History of colonoscopy (~01/22/03) History of laparoscopic cholecystectomy History of lumpectomy of right breast Social History Smoking Status: Never smoker alcohol intake: current details: occasional/social substance use type: does not use ROS ROS ED Constitutional Constitutional ED: Denies chills or fever(s) Eyes Eyes: Denies discharge from eye(s) ENT ENT ED: Denies discharge from eye(s), rhinorrhea or sore throat Cardiovascular Cardiovascular: Denies chest pain or palpitations Respiratory/Chest Respiratory/Chest: Denies cough or dyspnea Gastrointestinal Gastrointestinal: Denies abdominal pain Musculoskeletal Musculoskeletal: Reports extremity pain; Denies back pain or neck pain Integumentary Denies Abrasions or rash Neurologic Neurologic: Denies headache(s), paresthesias or weakness Psychiatric Psychiatric: Denies anxiety or depression Allergic/Immunologic Allergic/Immunologic ED: Denies lip swelling or urticaria EXAM Physical Exam Const Vital Signs: 05/25/23 09:37 Temperature 95.5 F L Temperature Source Temporal Pulse Rate 77 Respiratory Rate 18 Blood Pressure 117/72 Blood Pressure Mean 87 Pulse Ox 95 Positive well nourished and well developed General Appearance ED: well developed HEENT Reports moist mucous membranes Eyes PERRL Neck full ROM Chest Wall inspection of chest normal and palpation of chest normal Resp normal respiratory effort and clear to auscultation bilaterally Cardio regular rate and regular rhythm GI non-tender Palpation: soft Extremity Extremity Narrative: No significant edema, ecchymosis, erythema of the right knee. Slow purposeful range of motion, but does have pain with flexion. No reproducible tenderness to palpation. Ligaments tight on testing. Strong distal pulses. No calf tenderness or edema. Neuro oriented x3, moves all extremities and no sensory deficits noted Psych mental status grossly normal Skin no wounds Lesions: no lesions MDM MDM MDM Narrative Medical decision making narrative: Patient given naproxen for pain. Right knee x-rays obtained to evaluate for bony injury or fluid accumulation. Radiography Diagnostic Testing: Clinical Impression(s) from Imaging Studies Knee X-Ray 05/25/23 10:37 IMPRESSION: Degenerative arthrosis. Small joint effusion. Electronically Signed: Harshal Ritter MD at 10:51 EST , Treatment and Re-Evaluation Narrative: Right knee x-ray per my interpretation reveals no acute findings. Radiology interpretation is reviewed. She does have some arthritic changes and a small joint effusion. Serjio wrap is applied to the knee. Patient does not feel that she needs crutches. She has seen Dr. Martinez, orthopedics with [facility] previously. If not improved by Sunday she will call for an appointment. I will write her a short course of [place] for breakthrough pain as needed. Discharge Plan Triage Chief Complaint: Lower Extremity Injury ED Provider: Sierra Lance Dx/Rx/DC Orders Clinical Impression: Right knee sprain Instructions: ED Knee Sprain Prescriptions: New hydrocodone-acetaminophen 5-325 mg tablet 1 tab PO Q6H PRN PRN (Reason: Pain) 3 Days Qty: 10 0RF No Action valacyclovir [Valtrex] 500 mg tablet 500 mg PO QDAY sertraline [Zoloft] 50 mg tablet 50 mg PO QDAY estradiol [Estrace] 0.01 % (0.1 mg/gram) cream 1 g VAGINAL QDAY calcium carbonate-vitamin D3 1 EACH tablet 1 ea PO DAILY te-uoe-crysq-calcium carb-K1 1 EACH tablet 1 ea PO DAILY docusate sodium 100 MG capsule 100 mg PO BID Qty: 20 0RF metoprolol succinate 25 mg tablet extended release 24 hr 25 mg PO DAILY pravastatin 40 mg tablet 40 mg PO DAILY Primary Care Provider: Roseann Zhang Referrals: Dewayne Martinez MD [Non-Staff] - 3-5 Days if not improving Roseann Zhang MD [Primary Care Provider] - Disposition Disposition: Home, Self Care
--- NOTE | 2023-05-25 10:37 | RAD_ITS ---
STUDY: X-RAY - RIGHT KNEE REASON FOR EXAM: Female, 67 years old. Pain following injury. TECHNIQUE: 4 view(s) of the knee. COMPARISON: None. FINDINGS: Normal visualized distal femur. Normal visualized proximal tibia and fibula. Normal proximal tibiofibular articulation. There is mild degenerative arthrosis of the medial femorotibial compartment. Normal lateral femorotibial compartment. Normal patellofemoral articulation. Small joint effusion. RAD/Knee 4 or More Views IMPRESSION: Degenerative arthrosis. Small joint effusion. Electronically Signed: Harshal Ritter MD at 10:51 EST ,
[2023-05-25] MEDS: Naproxen 500 MG Tablet PO (10:48)
[2023-05-25 11:30] VITALS: BP 132/76; PULSE 64; RESP 14; TEMP 36.4; O2SAT 99
== END 2023-05-25 11:36 | disposition home or self-care (01) ==
PROVIDERS: Emergency Provider Emergency Medicine; PCP Internal Medicine; Visit Provider Emergency Medicine
DX: S83.91XA Sprain of unspecified site of right knee, initial encounter (principal); X58.XXXA Exposure to other specified factors, initial encounter; E78.5 Hyperlipidemia, unspecified
CPT/HCPCS: 73564; 99282